=== PATIENT | male | born 1990 | race Caucasian/White ===

== ENCOUNTER 2016-05-14 09:02 | Emergency (ER) | payer OTHER ==
[2016-05-14 09:08] VITALS: BP 149/76; PULSE 73; TEMP 98.1; BMI 46.3
--- NOTE | 2016-05-14 09:34 | PDOC ---
Suture Removal/Wound Check HPI - History of Present Illness Chief Complaint: Head/Neck problem Stated Complaint: HEAD INJURY, BUMP Time Seen by Provider: 05/14/16 09:28 History Source: Yes: Patient, Care Provider Exam Limitations: Yes: No Limitations Treated at: [facility] ED - Previous ED Treatment Type of procedure performed on last visit: Yes: Laceration Repair Tetanus Immunization: Yes: Up to Date Antibiotics Prescribed: No Past History - Travel Traveled outside of the country in the last 30 days: No Close contact w/someone who was outside of country & ill: No - Past Medical History Allergies/Adverse Reactions: Allergies diphenhydramine HCl [From Benadryl] Allergy (Verified 05/14/16 09:08) peanut Allergy (Verified 05/14/16 09:08) Penicillins Allergy (Verified 05/14/16 09:08) Home Medications: Ambulatory Orders Amlodipine Besylate 5 mg PO HS 05/14/16 Losartan Potassium [Cozaar] 50 mg PO DAILY 05/14/16 Magnesium 30 mg PO DAILY 05/14/16 Riboflavin [Vitamin B-2] 100 mg PO DAILY 05/14/16 General: Yes: no pertinent history - Social History Smoking Status: Never smoked Suture Removal/Wound Check PE - Physical Exam Laceration/Wound Check Symptoms: reports: None Current Severity Level: None Maximum Severity Level: None Pain Localization: None *Review of Systems - Review of Systems Able to Perform ROS?: Yes Constitutional: Yes: Symptoms Reported, See HPI. No: Malaise HEENTM: Yes: See HPI. No: Symptoms Reported Integumentary: Yes: Symptoms Reported, See HPI, Bruising, Other (well healed suture line to left occiput. no problems) Medical Decision Making - Medical Decision Making 05/14/16 09:34 1 staple removed without incident, well healed. *DC/Admit/Observation/Transfer Diagnosis at time of Disposition: Removal of staple - Discharge Dispostion Disposition: HOME Condition at time of disposition: Stable Admit: No - Patient Instructions Additional Instructions: may resume normal activity
--- NOTE | 2016-05-14 09:39 | PDOC ---
History of Present Illness - General Chief Complaint: Head/Neck problem Stated Complaint: HEAD INJURY, BUMP Time Seen by Provider: 05/14/16 09:28 History Source: Patient Exam Limitations: No Limitations - History of Present Illness Initial Comments: 05/14/16 09:39 Patient states was walking over low hanging portal and banged head on cement edge. No LOC, no laceration noted. States has mild headache but no other injury 05/18/16 13:24 Occurred: reports: just prior to arrival Severity: reports: mild, moderate Pain Location: reports: head Loss of Consciousness: no loss of consciousness Associated Symptoms (Fall): headache (mild) Past History - Travel Traveled outside of the country in the last 30 days: No Close contact w/someone who was outside of country & ill: No - Past Medical History Allergies/Adverse Reactions: Allergies Allergy/AdvReac Type Severity Reaction Status Date / Time diphenhydramine HCl Allergy Verified 05/14/16 09:08 [From Benadryl] peanut Allergy Verified 05/14/16 09:08 Penicillins Allergy Verified 05/14/16 09:08 Home Medications: Ambulatory Orders Amlodipine Besylate 5 mg PO HS 05/14/16 Losartan Potassium [Cozaar] 50 mg PO DAILY 05/14/16 Magnesium 30 mg PO DAILY 05/14/16 Riboflavin [Vitamin B-2] 100 mg PO DAILY 05/14/16 HTN: Yes Other medical history: MIGRAINS, CLUB FOOT - Psycho/Social/Smoking Cessation Hx Anxiety: Yes Suicidal Ideation: No Smoking History: Never smoked Hx Alcohol Use: No Drug/Substance Use Hx: No Review of Systems - Review of Systems Able to Perform ROS?: Yes Is the patient limited [place] proficient: Yes Constitutional: Yes: Symptoms Reported, See HPI, Chills, Malaise HEENTM: Yes: Symptoms Reported, See HPI. No: Eye Pain, Blurred Vision, Tearing Respiratory: Yes: See HPI. No: Symptoms reported Integumentary: Yes: Symptoms Reported, See HPI Neurological: Yes: Symptoms reported, See HPI, Headache All Other Systems: Reviewed and Negative *Physical Exam - Vital Signs Last Vital Signs Temp Pulse Resp BP Pulse Ox 98.1 F 73 16 149/76 98 05/14/16 09:04 05/14/16 09:04 05/14/16 09:04 05/14/16 09:04 05/14/16 09:04 - Physical Exam General Appearance: Yes: Nourished, Appropriately Dressed, Apparent Distress HEENT: positive: GAVINO, Normal ENT Inspection, TMs Normal (no hemotympanum, no drainage from nose or ears, no evidence of skull fracture), Pharynx Normal Neck: positive: Supple (no crepitus or step-offs, no true C-spine tenderness), Other (superficial abrasion/contusion to upper forehead. No crepitus or step- offs, no evidence of fracture). negative: Tender Respiratory/Chest: positive: Lungs Clear, Normal Breath Sounds Musculoskeletal: positive: Normal Inspection Extremity: positive: Normal Capillary Refill, Normal Inspection, Normal Range of Motion Integumentary: positive: Normal Color, Dry, Warm Neurologic: positive: hotel sales manager II-XII NML intact, Fully Oriented, Alert, Normal Mood/ Affect, Normal Response, Motor Strength 5/5 Progress Note - Progress Note Progress Note: Superficial head injury without significant injury. Will treat conservatively *DC/Admit/Observation/Transfer Diagnosis at time of Disposition: Head injuries Qualifiers: Encounter type: initial encounter Qualified Code(s): S09.90XA - Unspecified injury of head, initial encounter Contusion Qualifiers: Encounter type: initial encounter Contusion area: head Contusion of head detail : scalp Qualified Code(s): S00.03XA - Contusion of scalp, initial encounter - Discharge Dispostion Disposition: HOME Condition at time of disposition: Stable Admit: No - Patient Instructions Printed Discharge Instructions: DI for Contusion Additional Instructions: rest, avoid heavy lifting or exercise until pain gone. Tylenol or Motrin for pain relief.
== END 2016-05-14 09:55 | disposition home or self-care (01) ==
LOC: JERFT 09:02
DX: S00.83XA Contusion of other part of head, initial encounter (principal); W22.8XXA Striking against or struck by other objects, initial encounter; Y93.89 Activity, other specified; Y92.89 Other specified places as the place of occurrence of the external cause; Y99.8 Other external cause status
CPT/HCPCS: 99281-25